=== PATIENT | female | born 1980 | race Two or more races ===

== ENCOUNTER → 2016-09-10 | Outpatient (CLI) | payer MEDICAID, OTHER ==
--- NOTE | 2016-09-10 17:57 | RADRPT ---
PROCEDURE: XR pelvis/left hip. CLINICAL INDICATION: Hip pain TECHNIQUE: AP pelvis/AP and lateral left hip views performed COMPARISON: No prior studies are available for comparison. FINDINGS: There is severe left hip osteoarthrosis. This is associated with joint space narrowing, subchondral sclerosis, lateral displacement of the femoral head , subchondral cyst formation and osteophytosis. The right hip is unremarkable. The SI joints are unremarkable. There is normal mineralization. No fractures or osseous lesions are identified. The soft tissues are unremarkable. IMPRESSION: Severe left hip osteoarthrosis. RPTAT: HGDB .Efrain Raya MD, Date Time Electronically viewed and signed by .Efrain Raya MD, on 09/10/2016 17:57 .B/
== END | disposition home or self-care (01) ==
LOC: HKI 13:49
PROVIDERS: ATTEND Orthopaedic Surgery
DX: M25.552 Pain in left hip (principal); M16.12 Unilateral primary osteoarthritis, left hip
CPT/HCPCS: 73502; Z7500; G0463

== ENCOUNTER → 2016-10-24 | Outpatient (CLI) | payer OTHER | END | disposition home or self-care (01) | LOC: HKI 09:40 | PROVIDERS: ATTEND Orthopaedic Surgery | DX: M25.552 Pain in left hip (principal); M16.12 Unilateral primary osteoarthritis, left hip | CPT/HCPCS: G0463 ==

== ENCOUNTER 2016-10-30 07:00 | Inpatient (IN) | payer OTHER ==
[2016-10-24 11:41] VITALS: BMI 20.2
[~2016-10-30] VITALS: Ht 157.5 cm; Wt 50.7 kg
[2016-11-06] VITALS (24 sets, daily range): BP systolic 79–119; BP diastolic 51–69; PULSE 69–98; RESP 10–28; Ht 157.5 cm; Wt 50.7 kg
[2016-11-06] MEDS ORDERED: traMADOL 50 MG TAB X 1 DOSE PO ONE (06:00)
[2016-11-06] MEDS ORDERED: SOD CHLORIDE 0.9% IV ONE (06:00)
[2016-11-06] MEDS ORDERED: ONDANSETRON 4 MG IV X 1 DOSE IV ONE (06:00)
[2016-11-06] MEDS ORDERED: CELECOXIB 400 MG PO X1 DOSE PO ONE (06:00)
[2016-11-06] MEDS ORDERED: PREGABALIN 300 MG PO X1 PO ONE (06:00)
[2016-11-06] MEDS ORDERED: BUPIVACAINE LIPOSOME/PF 266 MG/20 ML VIAL INFIL ONE (06:00)
[2016-11-06] MEDS ORDERED: PAIN COCKTAIL-CEFUROXIME IRR ONE ×7 (06:00)
[2016-11-06] MEDS ORDERED: oxyCODONE (CR) 10 MG TAB [oxyCONTIN] X1 DOSE PO ONE (06:00)
[2016-11-06] MEDS ORDERED: TRANEXAMIC ACID 500 MG in SOD CHLORIDE 0.9% 100 ML IVPB ONE (06:00)
[2016-11-06] MEDS ORDERED: TRANEXAMIC ACID IV ONE (06:00)
[2016-11-06] MEDS ORDERED: CEFAZOLIN 2GM/50 ML (PMX) 50 ML X1 BEFORE INCISION IVPB ONE (06:00)
[2016-11-06] MEDS ORDERED: NAPR-260 PO (06:36)
[2016-11-06] MEDS ORDERED: BACITRACIN 50000 UNITS INJ ONE (06:55)
[2016-11-06] MEDS ORDERED: SODIUM CL BACTERIOSTATIC 30 ML INJ ONE (06:57)
[2016-11-06] MEDS ORDERED: VANCOMYCIN 1 GM INJ ONE (06:57)
[2016-11-06] MEDS ORDERED: POLYMYXIN B 500000 UNIT INJ ONE (06:57)
[2016-11-06] MEDS ORDERED: ETOMIDATE 20 MG INJ ONE (07:00)
[2016-11-06] MEDS ORDERED: NEOSTIGMINE 3 MG/3 ML SYRINGE ONE (07:11)
[2016-11-06] MEDS ORDERED: ONDANSETRON 4 MG INJ ONE (07:11)
[2016-11-06] MEDS ORDERED: GLYCOPYRROLATE 0.4 MG INJ ONE (07:11)
[2016-11-06] MEDS ORDERED: ROCURONIUM 50 MG INJ ONE (07:11)
[2016-11-06] MEDS ORDERED: PROPOFOL 20 ML ONE (07:11)
[2016-11-06] MEDS ORDERED: CEFAZOLIN 1 GM INJ ONE (07:11)
[2016-11-06] MEDS ORDERED: MIDAZOLAM 1 MG/ML 2 ML INJ ONE (07:11)
[2016-11-06] MEDS ORDERED: FENTAnyl 50 MCG/ML VIAL ONE (07:11)
[2016-11-06] MEDS ORDERED: DEXAMETHASONE 4 MG/ML 1 ML INJ ONE (07:12)
--- NOTE | 2016-11-06 07:14 | HPN ---
Date/Time of Note Date/Time of Note DATE: 11/06/16 TIME: 07:13 Interval H&P Admission Note Pt. seen H&P reviewed: No system changes No changes from H&P on 10/31/16 by NASREEN Mckeon MD Nov 06, 2016 07:14
[2016-11-06] MEDS: LACTATED RINGER'S 1,000 ML IV SCH ×5 (07:30→20:19)
[2016-11-06] MEDS ORDERED: LABETALOL HCL 20MG INJ IV PRN (09:00)
[2016-11-06] MEDS ORDERED: EPHEDrine SULFATE 50 MG/5 ML SYG IV PRN (09:00)
[2016-11-06] MEDS ORDERED: IPRATROPIUM (NEB) 0.5 MG/2.5 ML AMP HHN PRN (09:00)
[2016-11-06] MEDS ORDERED: MEPERIDINE 25 MG INJ IV PRN (09:00)
[2016-11-06] MEDS ORDERED: TRIMETHOBENZAMIDE 100 MG/ML VIAL IM PRN (09:00)
[2016-11-06] MEDS ORDERED: HYDROmorphONE (0.2 MG/ML) 10ML SYG IV PRN ×3 (09:00)
[2016-11-06] MEDS ORDERED: ALBUTEROL 0.083% (NEB) 2.5 MG/3 ML AMP HHN PRN (09:00)
[2016-11-06] MEDS ORDERED: OXYCODONE/ACETAMINOPHEN (5/325) TAB PO PRN ×2 (09:00)
[2016-11-06] MEDS ORDERED: MIDAZOLAM 1 MG/ML 2 ML INJ IV PRN (09:00)
[2016-11-06] MEDS ORDERED: hydrALAzine 20 MG INJ IV PRN (09:00)
[2016-11-06] MEDS ORDERED: DIPHENHYDRAMINE 50 MG INJ IV PRN (09:00)
[2016-11-06] MEDS ORDERED: ONDANSETRON 4 MG INJ IV PRN ×2 (09:00→10:30)
[2016-11-06] MEDS ORDERED: FENTAnyl 50 MCG/ML VIAL IV PRN ×2 (09:00)
[2016-11-06] MEDS ORDERED: SUGAMMADEX SODIUM 200 MG/2 ML VIAL IV ONE (09:44)
--- NOTE | 2016-11-06 10:09 | OPR ---
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 ANESTHESIOLOGIST: Jean Serrato M.D. ESTIMATED BLOOD LOSS: 500 cc INTRAVENOUS FLUIDS: 3500 cc of crystalloid SPECIMENS: Femoral head. DRAINS: Hemovac 1 COMPLICATIONS: None. DISPOSITION: The patient tolerated the procedure well and was taken to the recovery room in stable condition. 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 Despite nonsurgical means of treatment including activity modifications and anti-inflammatory medications she has had worsening pain I felt the patient would benefit from a total hip arthroplasty through an anterior approach. The risks, benefits, and alternatives of the procedure were explained in detail to the patient. I explained the risks of the surgery to include, but not be limited to: bleeding and possible need for blood transfusion; infection; pain; stiffness; neurovascular injury with possible numbness, weakness, and/or paralysis anywhere from the hip down to the toes; fracture; instability; dislocation; leg length inequality; wear and/or loosening of the prosthesis and possible need for future revision; blood clots; pulmonary embolism; and anesthetic complications such as heart attack, stroke, GI bleed, pneumonia, and/ or . Ample time was allowed for the patient to ask questions, all of which were addressed and answered. The patient understood the risks involved and wished to proceed. Informed consent was signed prior to the procedure. PROCEDURE: The patient's left hip was initialed with a marking pen in the preoperative area to identify the correct operative site. The patient was brought to the operating room and transferred from the [facility] to the [facility] where a spinal anesthetic was administered. The patient was then anesthetized and intubated. A Forman catheter was placed. Both feet were placed into well padded boots which were then placed into the leg holders of the traction booms. A timeout was performed to confirm that the left side was the correct operative site. The patient was given 2 g of intravenous Ancef within one hour prior to the procedure. The operative hip was prepped and draped in the usual sterile fashion. A 10 cm oblique incision was made over the anterior aspect of the hip and carried down through subcutaneous tissue and fat with sharp dissection. The tensor fascia fatmata was incised along the length of the wound. The tensor fascia muscle was retracted laterally and the sartorius medially. The anterior circumflex vessels were identified and tied off with 2-0 silk suture and coagulated with the [employer] customer program manager. The rectus femoris was elevated off the anterior capsule and an anterior capsulectomy performed. A femoral neck osteotomy was made and the head removed from the acetabulum. The acetabulum was denuded of cartilage circumferentially, as was the femoral head. Retractors were placed around the acetabulum. The remnants of the labrum and ligamentum teres were excised. I reamed the acetabulum to the medial wall and then went into an anatomic position and increased the reamer size in 2 mm increments until I got a good bite and was down to bleeding subchondral bone. The Friendship cup was opened and impacted into the acetabulum and sat flush circumferentially, getting a good bite. C-arm imaging showed it had about 40 to 45 degrees of abduction and 20 degrees of anteversion. The real liner was opened and impacted into the acetabulum and sat flush circumferentially. Attention was turned towards the femur. The operative leg was carefully lowered to the floor with the leg adducted. The foot was then externally rotated to approximately 110 degrees. A posteromedial release was performed to optimize exposure. The femoral hook was placed underneath the proximal femur and the hydraulic lift was then used to elevate the femur up out of the wound. The cookie cutter osteotome was used to remove the remaining overhanging greater trochanter. The femur was then broached, going up in one size increments until it sat flush with the neck cut and a stable fit was achieved. The trial neck and head were assembled and reduced into the acetabulum. Fluoroscopic imaging showed the components to be in good position and the leg lengths and offsets to be equal. At this point, the trial was dislocated and the trial broach removed. The canal was irrigated and dried. The real stem was opened and impacted into the femur. The trunnion was irrigated and dried, and the real femoral head was impacted onto the trunnion, and reduced into the acetabulum. The soft tissues were infiltrated with a mixture of 150 mg of 0.5% Bupivacaine, 8 mg of Duramorph, 300 mcg of epinephrine, 30 mg of Toradol, 100 mcg of clonidine, 750 mg of cefuroxime and 86 mL of normal saline, followed by an injection of 266 mg of liposomal Bupivacaine. At this point the hip was irrigated with a mixture of betadine/saline and then antibiotic saline with pulsatile lavage. A Hemovac drain was placed in the deep portion of the wound and brought out the anterolateral thigh. There was good hemostasis. The tensor fascia fatmata was repaired with a running #1 Vicryl. The deep fat layer was irrigated and closed with 2-0 Stratafix and the subcutaneous layer closed with 3 -0 Vicryl and the skin was closed with soila and then sealed with Dermabond. The drain was secured with 3-0 nylon. The sponge and needle counts were correct at the end of the case. The wound was covered with an occlusive dressing. The patient was awakened, extubated, and taken to the recovery room in stable condition. NASREEN CAMARA MD Nov 06, 2016 10:09
[2016-11-06] MEDS: CEFAZOLIN 2 GM/50 ML (PMX) 50 ML IVPB SCH ×2 (10:20→18:46)
[2016-11-06 10:28] LABS: HEMATOCRIT 29.9 % (37.0-47.0); HEMOGLOBIN 9.9 g/dl (12.0-16.0)
[2016-11-06] MEDS ORDERED: ASPIRIN (EC) 325 MG TAB PO ONE (10:30)
[2016-11-06] MEDS ORDERED: MAGNESIUM HYDROXIDE 30ML CUP PO PRN (10:30)
[2016-11-06] MEDS ORDERED: HYDROCODONE/APAP (5/325) TAB PO PRN (10:30)
[2016-11-06] MEDS ORDERED: NACL 0.9% 3 ML SYG IV SCH (10:30)
[2016-11-06] MEDS ORDERED: NA PHOSPHATE/BIPHOS 133 ML ENEMA PR PRN (10:30)
[2016-11-06] MEDS ORDERED: BISACODYL 10 MG SUPP PR PRN (10:30)
[2016-11-06] MEDS ORDERED: DIPHENHYDRAMINE 25 MG CAP PO PRN (10:30)
[2016-11-06 10:39] LABS: CALCIUM 8.3 mg/dl (8.4-10.2); CREATININE 0.59 mg/dl (0.44-1.00); POTASSIUM 3.4 mmol/L (3.5-5.1)
--- NOTE | 2016-11-06 10:42 | RADRPT ---
PROCEDURE: XR Pelvis. CLINICAL INDICATION: Postop TECHNIQUE: Single AP view of the pelvis. COMPARISON: No prior studies are available for comparison. FINDINGS: The patient is status post total left hip arthroplasty. Hardware appears intact. Alignment is karina sly anatomic. 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 The sacrum itself is suboptimally visualized due to overlying bowel gas. Postoperative changes including subcutaneous gas, skin soila, and subcutaneous drain are present. . IMPRESSION: 1. Total left hip arthroplasty in anatomic alignment. RPTAT: KK .Jcarlos Caldera MD, MD Date Time Electronically viewed and signed by .Jcarlos Caldera MD, MD on 11/06/2016 10:41 .B/
--- NOTE | 2016-11-06 10:42 | PN ---
Date/Time of Note Date/Time of Note DATE: 11/06/16 TIME: 10:41 Assessment/Plan Lines/Catheters IV Catheter Type (from Nrsg): Peripheral IV Assessment/Plan Assessment/Plan Stable in PACU, s/p left anterior KENN -continue Ancef -pain meds as neededf -ASA/SCDs -OOB with PT -check AM labs -monitor drain -d/c quarles in AM XR of the left hip shows good alignment with no fracture or dislocation identified Subjective 24 Hr Interval Summary Stable in PACU. Denies pain. Moving all extremities. Drowsy from anesthesia Exam/Review of Systems Vital Signs Vitals Vital Signs Date Time Temp Pulse Resp B/P Pulse Ox O2 Delivery O2 Flow Rate FiO2 11/06/16 10:29 82 16 111/64 100 Nasal Cannula 2.0 11/06/16 10:15 97.0 Exam Free Text/Dictation Hemovac: minimal Dressing dry Incision clean, dry, and intact without redness or drainage 5/5 Quadriceps, Tibialis Anterior, EHL, Gastroc, Soleus, Peroneals Normal sensation Palpable DT/PT, CR <2 sec No distal edema Results Result Diagram: 11/06/16 1015 GAURAV MCKEE PA-C Nov 06, 2016 10:42
--- NOTE | 2016-11-06 10:43 | RADRPT ---
PROCEDURE: Fluoroscopic guidance with radiographic images during total left hip arthroplasty. CLINICAL INDICATION: Left hip arthroplasty TECHNIQUE: 16 radiographs were obtained during left hip arthroplasty. COMPARISON: Pelvic radiograph 09/10/2016 FINDINGS: 0.5 minutes of fluoroscopy time was utilized during left hip arthroplasty. 16 radiographs were obta ined during the procedure in progress for guidance. Images of sequential resection of the left femo ral head and replacement with a left femoral head prosthesis and the acetabular prosthesis. Procedu re was performed by Dr. Neal. IMPRESSION: 1. Fluoroscopic guidance with x-ray images obtained for guidance during left hip arthroplasty. RPTAT: HJBF .Jcarlos Caldera MD, Date Time Electronically viewed and signed by .Jcarlos Caldera MD, MD on 11/06/2016 10:43 .B/
[2016-11-06] MEDS: FENTAnyl 50 MCG/ML VIAL IV PRN ×2 (10:54→16:19)
[2016-11-06] MEDS: traMADol 50 MG TAB PO SCH ×2 (12:00→18:47)
[2016-11-06] MEDS ORDERED: EXPAREL NOTE (BUPIVICAINE LIPOSOMAL) XX SCH (12:30)
[2016-11-06] MEDS ORDERED: TRANEXAMIC ACID IVPB ONE ×2 (13:30→16:30)
[2016-11-06] MEDS ORDERED: SOD CHLORIDE 0.9% IVPB ONE ×2 (13:30→16:30)
[2016-11-06] MEDS: HYDROmorphONE 1 MG/ML SYG IV PRN ×2 (14:01→17:08)
--- NOTE | 2016-11-06 16:31 | CONS ---
Date/Time of Note Date/Time of Note DATE: 11/06/16 TIME: 16:24 Assessment/Plan Assessment/Plan Chief Complaint/Hosp Course Assessment and plan Left hip developmental dysplasia, status post left anterior total hip arthroplasty Anemia, monitor for now possibly postsurgical Hyponatremia, mild Hypokalemia, mild Left hip pain Nausea vomiting Plan -Continue postoperative care per general surgery, will continue to consult, as needed medications for pain -Replace electrolytes as needed, will repeat labs tomorrow -As needed nausea medications -Continue drain care -PT OT -We will follow-up in the a.m. Problems: Consultation Date/Type/Reason Admit Date/Time Nov 06, 2016 at 05:25 Hx of Present Illness Patient is a 36-year-old female with no significant past medical history except for developmental dysplasia who presents to [facility] status post elective left anterior total hip arthroplasty. Upon initial evaluation patient is vomiting copiously status post extubation from surgery and information is obtained from her sister who is at bedside. Patient does not take any normal medications and her condition was only for a developmental disorder. Patient currently does complain of nausea and vomiting post surgery and incisional site pain. Patient does not state any other acute issues at this time. PMH: Developmental dysplasia of the left hip PSH: Status post left total anterior hip arthroplasty today Social: Unknown Meds: None, except for pain medications for hip Social History Smoking Status: Never smoker Exam/Review of Systems Vital Signs Vitals Vital Signs Date Time Temp Pulse Resp B/P Pulse Ox O2 Delivery O2 Flow Rate FiO2 11/06/16 14:50 97.5 77 19 99/56 96 11/06/16 11:19 Room Air 11/06/16 10:44 2.0 Exam Physical exam General: Patient is laying in bed and answers questions, but Mentation: Patient is alert and oriented 4, Head: Normocephalic atraumatic Eyes: EOMI, pupils reactive to light Neck: Supple, nontender, midline Respiratory: Clear to auscultation bilaterally Cardiovascular: regular rate, no obvious murmurs Gastrointestinal: non-tender to palpation, bowel sounds heard. Neurological: Moves all extremities spontaneously Skin: hemovac drain on left surgical site. CDI Results Result Diagram: 11/06/16 1015 11/06/16 1015 Results 24 hrs Laboratory Tests Test 11/06/16 10:15 Hemoglobin 9.9 L Hematocrit 29.9 L Sodium Level 146 H Potassium Level 3.4 L Chloride Level 105 Carbon Dioxide Level 26 Anion Gap 18 H Blood Urea Nitrogen 6 L Creatinine 0.59 Glucose Level 213 Calcium Level 8.3 L Medications Medications Current Medications Lactated Ringer's (Lr) 1,000 ml @ 100 mls/hr Q10H IV ; Start 11/06/16 at 06:00; Stop 11/06/16 at 20:00 Miscellaneous Information 1 ea 1 ea NOTE XX ; Start 11/06/16 at 12:30; Stop at 20:00 Lactated Ringer's (Lr) 1,000 ml @ 125 mls/hr Q8H IV Last administered on 11:40; Admin Dose 125 MLS/HR; Start 11/06/16 at 10:04 Tramadol HCl (Ultram) 50 mg Q6 PO ; Start 11/06/16 at 12:00; Stop 11/09/16 at 11: 59 Acetaminophen/ Hydrocodone Bitart ([place] (5/325)) 1 tab Q4H PRN PO PAIN LEVEL 1 -3; Start 11/06/16 at 10:30 Acetaminophen/ Hydrocodone Bitart ([place] (5/325)) 2 tab Q4H PRN PO PAIN LEVEL 4 -7; Start 11/06/16 at 10:30 Hydromorphone HCl 1 mg 1 mg Q3H PRN IV PAIN LEVEL 8-10 Last administered on 11/06 14:01; Admin Dose 1 MG; Start 11/06/16 at 10:30 Cefazolin Sodium/ Dextrose (Ancef 2 Gm/50 ml (Pmx)) 50 ml @ 100 mls/hr Q8H IVPB Last administered on 11/06/16 10:20; Admin Dose 100 MLS/HR; Start 11/06/16 at 10:30; Stop 11/07/16 at 02:59 Ondansetron HCl (Zofran Inj) 4 mg Q6H PRN IV NAUSEA AND/OR VOMITING Last administered on 11/06/16 15:01; Admin Dose 4 MG; Start 11/06/16 at 10:30 Bisacodyl (Dulcolax Supp) 10 mg Q12H PRN [place] CONSTIPATION; Start 11/06/16 at 10: 30 Magnesium Hydroxide (Milk Of Mag) 30 ml BID PRN PO CONSTIPATION; Start 11/06/16 at 10:30 Sodium Biphosphate/ Sodium Phosphate (Fleet Enema) 133 ml DAILY PRN [place] CONSTIPATION; Start 11/06/16 at 10:30 Docusate Sodium (Colace) 100 mg BID PO ; Start 11/06/16 at 21:00 Diphenhydramine HCl (Benadryl) 25 mg Q6H PRN PO PRURITUS; Start 11/06/16 at 10: 30 Aspirin (Ecotrin) 325 mg BID PO ; Start 11/07/16 at 09:00 Pantoprazole (Protonix Tab) 40 mg BID@06,18 PO ; Start 11/06/16 at 18:00 SAÚL MAKI Nov 06, 2016 16:31
[2016-11-06] MEDS: PANTOPRAZOLE (EC) 40 MG TAB PO SCH (18:47)
[2016-11-06] MEDS: DOCUSATE SODIUM 100 MG CAP PO SCH (20:20)
[2016-11-07] VITALS (8 sets, daily range): BP systolic 80–109; BP diastolic 42–59; PULSE 65–97; RESP 16–20
[2016-11-07] MEDS: traMADol 50 MG TAB PO SCH ×4 (00:20→18:42)
[2016-11-07] MEDS ORDERED: SOD CHLORIDE 0.9% 1,000 ML IV ONE ×2 (00:45→03:25)
[2016-11-07] MEDS: CEFAZOLIN 2 GM/50 ML (PMX) 50 ML IVPB SCH (02:55)
[2016-11-07] MEDS: PANTOPRAZOLE (EC) 40 MG TAB PO SCH ×2 (05:12→18:42)
[2016-11-07 05:33] LABS: HEMATOCRIT 19.5 % (37.0-47.0)
[2016-11-07 05:41] LABS: HEMOGLOBIN 6.5 g/dl (12.0-16.0)
[2016-11-07 06:09] LABS: CALCIUM 7.4 mg/dl (8.4-10.2); CREATININE 0.58 mg/dl (0.44-1.00); POTASSIUM 3.8 mmol/L (3.5-5.1)
[2016-11-07 06:41] LABS: HEMATOCRIT 19.8 % (37.0-47.0)
[2016-11-07 06:46] LABS: HEMOGLOBIN 6.4 g/dl (12.0-16.0)
--- NOTE | 2016-11-07 08:47 | PN ---
Date/Time of Note Date/Time of Note DATE: 11/07/16 TIME: 08:45 Assessment/Plan Lines/Catheters IV Catheter Type (from Nrsg): Peripheral IV Forman in Place (from Nrsg): Yes Assessment/Plan Assessment/Plan Stable POD #1, s/p left anterior KENN -d/c Ancef -pain meds as needed -ASA/SCDs -transfuse 2 units PRBCs -OOB with PT -check AM labs -drain removed -d/c planning. Will plan to go home upon discharge Subjective 24 Hr Interval Summary No acute overnight events. Patient generally feels fatigued. H&H low and will require transfusion of 2 units PRBCs, ordered by Dr. Braxton. VSS, afebrile. Tentative plan for discharge home when stable. Exam/Review of Systems Vital Signs Vitals Vital Signs Date Time Temp Pulse Resp B/P Pulse Ox O2 Delivery O2 Flow Rate FiO2 11/07/16 08:13 98.3 87 18 83/52 98 11/07/16 05:48 Room Air 11/06/16 10:44 2.0 Intake and Output 11/06/16 11/06/16 11/07/16 14:59 22:59 06:59 Intake Total 7305 ml 932.2 ml 3275 ml Output Total 7905 ml 1900 ml 3000 ml Balance -600 ml -967.8 ml 275 ml Exam Free Text/Dictation Hemovac: 155cc Dressing dry Incision clean, dry, and intact without redness or drainage 5/5 Quadriceps, Tibialis Anterior, EHL, Gastroc, Soleus, Peroneals Normal sensation Palpable DT/PT, CR <2 sec No distal edema Results Result Diagram: 11/07/16 0605 11/07/16 0439 GAURVA MCKEE PA-C Nov 07, 2016 08:47
[2016-11-07] MEDS: ASPIRIN (EC) 325 MG TAB PO SCH ×2 (09:00→20:55)
[2016-11-07] MEDS: DOCUSATE SODIUM 100 MG CAP PO SCH ×2 (09:00→20:55)
[2016-11-07 09:47] LABS: ADD UMIC YES; UR ASCORBIC ACID NEGATIVE (NEGATIVE); UR BILIRUBIN (Dip) NEGATIVE (NEGATIVE); UR BLOOD (Dip) 1+ mg/dL (NEGATIVE); UR CLARITY CLEAR (CLEAR); UR COLOR COLORLESS (YELLOW); UR GLUCOSE (Dip) NEGATIVE (NEGATIVE); UR KETONES (Dip) NEGATIVE (NEGATIVE); UR LEUKOCYTE ESTERASE (Dip) NEGATIVE Leu/ul (NEGATIVE); UR NITRITE (Dip) NEGATIVE (NEGATIVE); UR RBC 0 /HPF (0-5); UR SPECIFIC GRAVITY (Dip) 1.004 (1.003-1.030); UR TOTAL PROTEIN (Dip) NEGATIVE (NEGATIVE); UR UROBILINOGEN (Dip) NEGATIVE (NEGATIVE)
--- NOTE | 2016-11-07 14:04 | PN ---
Date/Time of Note Date/Time of Note DATE: 11/07/16 TIME: 14:03 Assessment/Plan VTE Prophylaxis VTE Prophylaxis Intervention: SCD's Lines/Catheters IV Catheter Type (from Nrsg): Peripheral IV Urinary Cath still in place: Yes Reason Cath still needed: terminal illness/intractable pain Assessment/Plan Chief Complaint/Hosp Course Assessment and plan Left hip developmental dysplasia, status post left anterior total hip arthroplasty Anemia, monitor for now possibly postsurgical Hyponatremia, mild Hypokalemia, mild Left hip pain Nausea vomiting, resolving hypotension, ?chronic Plan -Continue postoperative care per general surgery, will continue to consult, as needed medications for pain -hypotensive, but patient states she has a hx of hypotension, asymptomatic at this time, continue fluids. -Replace electrolytes as needed, will repeat labs tomorrow -As needed nausea medications -hemovac removed -blood given today -PT OT -We will follow-up in the a.m. Problems: Subjective 24 Hr Interval Summary Free Text/Dictation nausea has subsided significantly. mild pain. Exam/Review of Systems Vital Signs Vitals Vital Signs Date Time Temp Pulse Resp B/P Pulse Ox O2 Delivery O2 Flow Rate FiO2 11/07/16 08:13 98.3 87 18 83/52 98 11/07/16 05:48 Room Air 11/06/16 10:44 2.0 Intake and Output 11/06/16 11/06/16 11/07/16 15:00 23:00 07:00 Intake Total 7410.1 ml 827.1 ml 3275 ml Output Total 7905 ml 1900 ml 3000 ml Balance -494.9 ml -1072.9 ml 275 ml Exam Physical exam General: Patient is laying in bed and answers questions Mentation: Patient is alert and oriented 4, Head: Normocephalic atraumatic Eyes: EOMI, pupils reactive to light Neck: Supple, nontender, midline Respiratory: Clear to auscultation bilaterally Cardiovascular: regular rate, no obvious murmurs Gastrointestinal: non-tender to palpation, bowel sounds heard. Neurological: Moves all extremities spontaneously Skin: left surgical site. CDI Results Result Diagram: 11/07/16 0605 11/07/16 0439 Results 24 hrs Laboratory Tests Test 11/07/16 04:30 11/07/16 04:39 11/07/16 06:05 Urine Color COLORLESS Urine Clarity CLEAR Urine pH 6.0 Urine Specific Gardner 1.004 Urine Ketones NEGATIVE Urine Nitrite NEGATIVE Urine Bilirubin NEGATIVE Urine Urobilinogen NEGATIVE Urine Leukocyte Esterase NEGATIVE Urine Microscopic RBC 0 Urine Microscopic WBC 0 Urine Hemoglobin 1+ H Urine Glucose NEGATIVE Urine Total Protein NEGATIVE Hemoglobin 6.5 #*L 6.4 *L Hematocrit 19.5 #L 19.8 L Sodium Level 140 Potassium Level 3.8 Chloride Level 103 Carbon Dioxide Level 27 Anion Gap 14 Blood Urea Nitrogen 8 Creatinine 0.58 Glucose Level 97 # Calcium Level 7.4 L Medications Medications Current Medications Lactated Ringer's (Lr) 1,000 ml @ 125 mls/hr Q8H IV Last administered on 20:19; Admin Dose 125 MLS/HR; Start 11/06/16 at 10:04 Tramadol HCl (Ultram) 50 mg Q6 PO Last administered on 11/07/16 12:57; Admin Dose 50 MG; Start 11/06/16 at 12:00; Stop 11/09/16 at 11:59 Acetaminophen/ Hydrocodone Bitart ([place] (5/325)) 1 tab Q4H PRN PO PAIN LEVEL 1 -3; Start 11/06/16 at 10:30 Acetaminophen/ Hydrocodone Bitart ([place] (5/325)) 2 tab Q4H PRN PO PAIN LEVEL 4 -7; Start 11/06/16 at 10:30 Hydromorphone HCl (Dilaudid) 1 mg Q3H PRN IV PAIN LEVEL 8-10 Last administered on 11/06/16 17:08; Admin Dose 1 MG; Start 11/06/16 at 10:30 Ondansetron HCl (Zofran Inj) 4 mg Q6H PRN IV NAUSEA AND/OR VOMITING Last administered on 11/06/16 15:01; Admin Dose 4 MG; Start 11/06/16 at 10:30 Bisacodyl (Dulcolax Supp) 10 mg Q12H PRN [place] CONSTIPATION; Start 11/06/16 at 10: 30 Magnesium Hydroxide (Milk Of Mag) 30 ml BID PRN PO CONSTIPATION; Start 11/06/16 at 10:30 Sodium Biphosphate/ Sodium Phosphate (Fleet Enema) 133 ml DAILY PRN [place] CONSTIPATION; Start 11/06/16 at 10:30 Docusate Sodium (Colace) 100 mg BID PO Last administered on 11/07/16 09:00; Admin Dose 100 MG; Start 11/06/16 at 21:00 Diphenhydramine HCl (Benadryl) 25 mg Q6H PRN PO PRURITUS; Start 11/06/16 at 10: 30 Aspirin (Ecotrin) 325 mg BID PO Last administered on 11/07/16 09:00; Admin Dose 325 MG; Start 11/07/16 at 09:00 Pantoprazole (Protonix Tab) 40 mg BID@06,18 PO Last administered on 11/07/16 05 :12; Admin Dose 40 MG; Start 11/06/16 at 18:00 SAÚL MAKI Nov 07, 2016 14:04
[2016-11-07] MEDS: HYDROCODONE/APAP (5/325) TAB PO PRN (14:33)
[2016-11-07] MEDS: LACTATED RINGER'S 1,000 ML IV SCH (18:43)
[2016-11-08] MEDS: traMADol 50 MG TAB PO SCH ×5 (00:01→23:52)
[2016-11-08] MEDS: LACTATED RINGER'S 1,000 ML IV SCH ×3 (02:04→18:04)
[2016-11-08 02:28] VITALS: BP 91/53; RESP 18
[2016-11-08] MEDS: HYDROCODONE/APAP (5/325) TAB PO PRN ×2 (02:31→09:24)
[2016-11-08 05:37] LABS: HEMATOCRIT 26.9 % (37.0-47.0); HEMOGLOBIN 9.3 g/dl (12.0-16.0)
[2016-11-08 05:59] LABS: CALCIUM 7.7 mg/dl (8.4-10.2); CREATININE 0.59 mg/dl (0.44-1.00); POTASSIUM 3.3 mmol/L (3.5-5.1)
[2016-11-08] MEDS: PANTOPRAZOLE (EC) 40 MG TAB PO SCH ×2 (06:26→18:44)
--- NOTE | 2016-11-08 06:47 | PDOCDIS ---
Discharge Instructions DIAGNOSIS Discharge Diagnosis s/p left anterior KENN CONDITION Patient Condition: Good HOME CARE INSTRUCTIONS: Diet Instructions: Regular ACTIVITY: Activity Restrictions: Slowly Increase Activity Rest between Activity Avoid heavy lifting Do not operate Machinery Do not operate Power Tool Avoid Heavy Housework Keep Limb Elevated Weight Bearing FOLLOW UP/APPOINTMENTS Follow-up Plan follow up in the office on 11/16/16 OTHER ORDERS: Other Orders: S/P Anterior KENN Physical Therapy: Three times per week at home x 2 weeks Daily in Rehab/SNF WB STATUS: WBAT Strengthening exercises for both upper and un-operated lower extremities. 1. Gait training with front wheeled walker 2. Wide base gait, no pivot turns. 3. Abductor strengthening. 4. Quadriceps and hamstring strengthening. 5. May switch to cane in contra lateral hand 6 weeks after surgery. 6. Physical Therapy can open case if nursing is not available. 7. Ice Packs while at rest to surgical wound for 20 minutes, 3 times/day. 8. Patient requires mobile SCDs to reduce risk of developing DVT following KENN. Patient will use the mobile SCDs for 30 days postoperatively. Hip Precautions: No posterior hip precautions. Bathing assistance by home health aide twice weekly if Medicare patient. Occupational Therapy: Evaluation for assistive devices and ADL training. Wound Care: Keep incision dry & covered with Tegaderm until first visit with Dr. Braxton Anticoagulation Orders: Enteric Coated Aspirin 325 mg po bid x 6 weeks from date of surgery Follow-up:Call for an appointment with Dr. Braxton in 1 week after discharged from hospital at DME Orders: JENNIFER, 3-in-1 Commode, Mobile SCDs GAURAV MCKEE PA-C Nov 08, 2016 06:47
[2016-11-08] MEDS ORDERED: ASPI325T32 PO (06:50)
[2016-11-08] MEDS ORDERED: TRAM50TA2 PO (06:50)
[2016-11-08] MEDS ORDERED: HYDR-3498 PO (06:50)
[2016-11-08] MEDS ORDERED: PANT40TA4 PO (06:50)
--- NOTE | 2016-11-08 07:46 | PN ---
Date/Time of Note Date/Time of Note DATE: 11/08/16 TIME: 07:44 Assessment/Plan Lines/Catheters IV Catheter Type (from Nrsg): Peripheral IV Forman in Place (from Nrsg): Yes Assessment/Plan Assessment/Plan POD #2, s/p left anterior KENN -pain meds as needed -ASA/SCDs -OOB with PT -dressing changed -check AM labs -plan to d/c home tomorrow Subjective 24 Hr Interval Summary No acute overnight events. H&H improved after receiving blood yesterday. VSS, afebrile. Plan for discharge home tomorrow. Exam/Review of Systems Vital Signs Vitals Vital Signs Date Time Temp Pulse Resp B/P Pulse Ox O2 Delivery O2 Flow Rate FiO2 11/08/16 02:28 98.2 70 18 91/53 97 11/07/16 18:00 Room Air 11/06/16 10:44 2.0 Intake and Output 11/07/16 11/07/16 11/08/16 15:00 23:00 07:00 Intake Total 2025 ml 1725 ml Output Total 900 ml 2500 ml Balance 1125 ml -775 ml Exam Free Text/Dictation Dressing dry Incision clean, dry, and intact without redness or drainage 5/5 Quadriceps, Tibialis Anterior, EHL, Gastroc, Soleus, Peroneals Normal sensation Palpable DT/PT, CR <2 sec No distal edema Results Result Diagram: 11/08/168 11/08/168 GAURAV MCKEE PA-C Nov 08, 2016 07:46
[2016-11-08 08:29] VITALS: BP 100/61; RESP 16
[2016-11-08] MEDS ORDERED: POTASSIUM CHLORIDE 20 MEQ POWDER FOR ORAL SOLN PO ONE (09:30)
[2016-11-08] MEDS: DOCUSATE SODIUM 100 MG CAP PO SCH ×2 (10:07→20:39)
[2016-11-08] MEDS: ASPIRIN (EC) 325 MG TAB PO SCH ×2 (10:07→20:39)
--- NOTE | 2016-11-08 13:41 | PN ---
Date/Time of Note Date/Time of Note DATE: 11/08/16 TIME: 13:40 Assessment/Plan VTE Prophylaxis VTE Prophylaxis Intervention: ambulation Lines/Catheters IV Catheter Type (from Nrsg): Saline Lock Urinary Cath still in place: Yes Reason Cath still needed: terminal illness/intractable pain Assessment/Plan Chief Complaint/Hosp Course Assessment and plan Left hip developmental dysplasia, status post left anterior total hip arthroplasty Anemia, monitor for now possibly postsurgical Hyponatremia, mild Hypokalemia, mild Left hip pain Nausea vomiting, resolving hypotension, ?chronic Plan -Continue postoperative care per general surgery, will continue to consult, as needed medications for pain -hypotensive, but patient states she has a hx of hypotension, asymptomatic at this time, continue fluids as needed. -Replace electrolytes as needed, will repeat labs tomorrow -As needed nausea medications -hemovac removed -blood given today -PT OT -We will follow-up in the a.m. Problems: Subjective 24 Hr Interval Summary Free Text/Dictation minimal nausea mild surgical site pain Exam/Review of Systems Vital Signs Vitals Vital Signs Date Time Temp Pulse Resp B/P Pulse Ox O2 Delivery O2 Flow Rate FiO2 11/08/16 08:29 98.5 88 16 100/61 97 11/07/16 18:00 Room Air 11/06/16 10:44 2.0 Intake and Output 11/07/16 11/07/16 11/08/16 15:00 23:00 07:00 Intake Total 2025 ml 1725 ml Output Total 900 ml 2500 ml Balance 1125 ml -775 ml Exam Physical exam General: Patient is laying in bed and answers questions Mentation: Patient is alert and oriented 4, Head: Normocephalic atraumatic Eyes: EOMI, pupils reactive to light Neck: Supple, nontender, midline Respiratory: Clear to auscultation bilaterally Cardiovascular: regular rate, no obvious murmurs Gastrointestinal: non-tender to palpation, bowel sounds heard. Neurological: Moves all extremities spontaneously Skin: left surgical site. CDI Results Result Diagram: 11/08/168 11/08/168 Results 24 hrs Laboratory Tests Test 11/08/16 04:28 11/08/16 07:13 Hemoglobin 9.3 #L Hematocrit 26.9 #L Sodium Level 141 Potassium Level 3.3 L Chloride Level 101 Carbon Dioxide Level 30 Anion Gap 13 Blood Urea Nitrogen 6 L Creatinine 0.59 Glucose Level 82 Calcium Level 7.7 L Lab Scanned Report BLOOD TRANSFUSION Medications Medications Current Medications Lactated Ringer's (Lr) 1,000 ml @ 125 mls/hr Q8H IV Last administered on 04:34; Admin Dose 125 MLS/HR; Start 11/06/16 at 10:04 Tramadol HCl (Ultram) 50 mg Q6 PO Last administered on 11/08/16 12:56; Admin Dose 50 MG; Start 11/06/16 at 12:00; Stop 11/09/16 at 11:59 Acetaminophen/ Hydrocodone Bitart ([place] (5/325)) 1 tab Q4H PRN PO PAIN LEVEL 1 -3 Last administered on 11/08/16 09:24; Admin Dose 1 TAB; Start 11/06/16 at 10:30 Acetaminophen/ Hydrocodone Bitart ([place] (5/325)) 2 tab Q4H PRN PO PAIN LEVEL 4 -7; Start 11/06/16 at 10:30 Hydromorphone HCl (Dilaudid) 1 mg Q3H PRN IV PAIN LEVEL 8-10 Last administered on 11/06/16 17:08; Admin Dose 1 MG; Start 11/06/16 at 10:30 Ondansetron HCl (Zofran Inj) 4 mg Q6H PRN IV NAUSEA AND/OR VOMITING Last administered on 11/06/16 15:01; Admin Dose 4 MG; Start 11/06/16 at 10:30 Bisacodyl (Dulcolax Supp) 10 mg Q12H PRN [place] CONSTIPATION; Start 11/06/16 at 10: 30 Magnesium Hydroxide (Milk Of Mag) 30 ml BID PRN PO CONSTIPATION; Start 11/06/16 at 10:30 Sodium Biphosphate/ Sodium Phosphate (Fleet Enema) 133 ml DAILY PRN [place] CONSTIPATION; Start 11/06/16 at 10:30 Docusate Sodium (Colace) 100 mg BID PO Last administered on 11/08/16 10:07; Admin Dose 100 MG; Start 11/06/16 at 21:00 Diphenhydramine HCl (Benadryl) 25 mg Q6H PRN PO PRURITUS; Start 11/06/16 at 10: 30 Aspirin (Ecotrin) 325 mg BID PO Last administered on 11/08/16 10:07; Admin Dose 325 MG; Start 11/07/16 at 09:00 Pantoprazole (Protonix Tab) 40 mg BID@,18 PO Last administered on 11/08/16 06 :26; Admin Dose 40 MG; Start 11/06/16 at 18:00 SAÚL MAKI Nov 08, 2016 13:41
[2016-11-08 15:09] VITALS: BP 99/57; RESP 16
[2016-11-08 20:48] VITALS: BP 101/61; RESP 18
[2016-11-09] MEDS: LACTATED RINGER'S 1,000 ML IV SCH ×2 (01:54→09:01)
[2016-11-09 05:13] LABS: HEMATOCRIT 29.7 % (37.0-47.0); HEMOGLOBIN 9.8 g/dl (12.0-16.0)
[2016-11-09 05:27] LABS: CALCIUM 8.2 mg/dl (8.4-10.2); CREATININE 0.57 mg/dl (0.44-1.00); POTASSIUM 3.4 mmol/L (3.5-5.1)
[2016-11-09] MEDS: PANTOPRAZOLE (EC) 40 MG TAB PO SCH (06:09)
[2016-11-09] MEDS: traMADol 50 MG TAB PO SCH (06:09)
[2016-11-09 08:09] VITALS: BP 90/56; RESP 18
--- NOTE | 2016-11-09 08:45 | PN ---
Date/Time of Note Date/Time of Note DATE: 11/09/16 TIME: 08:44 Assessment/Plan Lines/Catheters IV Catheter Type (from Nrsg): Saline Lock Forman in Place (from Nrsg): Yes Assessment/Plan Assessment/Plan POD #3, s/p left anterior KENN -pain meds as needed -ASA/SCDs -OOB with PT -dressing changed -d/c home today -follow up in the office in 1 week Subjective 24 Hr Interval Summary No acute overnight events. Denies significant pain. Walked 400 feet with PT yesterday. VSS, afebrile. Stable for discharge home today. Exam/Review of Systems Vital Signs Vitals Vital Signs Date Time Temp Pulse Resp B/P Pulse Ox O2 Delivery O2 Flow Rate FiO2 11/09/16 08:09 98.0 80 18 90/56 85 11/07/16 18:00 Room Air 11/06/16 10:44 2.0 Intake and Output 11/08/16 11/08/16 11/09/16 15:00 23:00 07:00 Intake Total 700 ml 500 ml Balance 700 ml 500 ml Exam Free Text/Dictation Dressing dry Incision clean, dry, and intact without redness or drainage 5/5 Quadriceps, Tibialis Anterior, EHL, Gastroc, Soleus, Peroneals Normal sensation Palpable DT/PT, CR <2 sec No distal edema Results Result Diagram: 11/09/16 0427 11/09/16 0428 GAURAV MCKEE PA-C Nov 09, 2016 08:45
[2016-11-09] MEDS: DOCUSATE SODIUM 100 MG CAP PO SCH (09:00)
[2016-11-09] MEDS: ASPIRIN (EC) 325 MG TAB PO SCH (09:00)
[2016-11-09] MEDS ORDERED: POTASSIUM CHLORIDE 20 MEQ POWDER FOR ORAL SOLN PO ONE (10:30)
--- NOTE | 2016-11-09 11:13 | DS ---
Date/Time of Note Date/Time of Note DATE: 11/09/16 TIME: 11:10 Discharge Summary Admission/Discharge Info Admit Date/Time Nov 06, 2016 at 05:25 Discharge Date/Time November 09, 2016 Discharge Diagnosis s/p left anterior EKNN Patient Condition: Good Procedures Left anterior total hip arthroplasty Hospital Course This is a 36-year-old female who came to our clinic initially complaining of left hip pain. 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 On 11/06/2016, the patient was admitted and taken to the operating room where she underwent a left anterior total hip arthroplasty. There were no intraoperative complications. The patient tolerated procedure well. She was taken to recovery room in stable condition. Pain was well-controlled oral pain medication. She was started on aspirin and SCDs for DVT prophylaxis. She did develop postop anemia requiring a transfusion of 2 units of packed red cells. After her blood transfusion, her H& H remained stable and she remained neurovascularly intact throughout her hospital stay. She began physical therapy on postoperative day 2, and was deemed stable for discharge home on postoperative day 3. Prior to discharge, the incision was inspected and noted to be clean, dry, and intact. Dressing changes were done prior to patient going home. DISCHARGE INSTRUCTIONS: The patient will be discharged home in stable condition. She is to resume her normal diet. She is weightbearing as tolerated on left lower extremity. She will begin physical therapy with home health. She will be discharged home with a medication noted, and is to resume all of her normal home medication. Patient is to call the office or go to emergency room for any concerns including increased redness, swelling, drainage , fever, or any concerns regarding the operation or site of incision. Home Meds Active Scripts Tramadol HCl (Tramadol HCl) 50 Mg Tablet, 50 MG PO Q6 for 30 Days, #60 TAB Prov:GAURAV MCKEE PA-C 11/08/16 Hydrocodone Bit-Acetaminophen (Hydrocodone Bit-APAP) 5-325MG Tablet, 1 TAB PO Q4H Y for PAIN LEVEL 1-3 for 30 Days, #60 TAB Prov:GAURAV MCKEE PA-C 11/08/16 Pantoprazole* (Pantoprazole*) 40 Mg Tablet.dr 40 MG PO BID@06,18 for 40 Days, # 40 Prov:GAURAV MCKEE PA-C 11/08/16 Aspirin (Aspir-Michelle) 325 Mg Tablet.dr, 325 MG PO BID for 40 Days, #80 Prov:GAURAV MCKEE PA-C 11/08/16 Discontinued Reported Medications Naproxen* (Naprosyn*) 500 Mg Tablet, 500 MG PO BID, TAB 11/06/16 Follow-up Plan Follow-up in the office on 11/16/2016 Primary Care Provider Pam Nesbitt MD Pending Labs Laboratory Tests Test 11/09/16 04:27 11/09/16 04:28 Hemoglobin 9.8g/dl (12.0-16.0) Hematocrit 29.7% (37.0-47.0) Sodium Level 138mmol/L (135-144) Potassium Level 3.4mmol/L (3.5-5.1) Chloride Level 97mmol/L (97-110) Carbon Dioxide Level 31mmol/L (21-31) Anion Gap 13 (8-16) Blood Urea Nitrogen 5mg/dl (7-20) Creatinine 0.57mg/dl (0.44-1.00) Glucose Level 91mg/dl (70-220) Calcium Level 8.2mg/dl (8.4-10.2) GAURAV MCKEE PA-C Nov 09, 2016 11:13
--- NOTE | 2016-11-09 14:07 | PN ---
Date/Time of Note Date/Time of Note DATE: 11/09/16 TIME: 14:06 Assessment/Plan VTE Prophylaxis VTE Prophylaxis Intervention: ambulation Lines/Catheters IV Catheter Type (from Nrs): Saline Lock Urinary Cath still in place: No Assessment/Plan Chief Complaint/Hosp Course Assessment and plan Left hip developmental dysplasia, status post left anterior total hip arthroplasty Anemia, monitor for now possibly postsurgical Hyponatremia, mild Hypokalemia, mild Left hip pain Nausea vomiting, resolving hypotension, ?chronic Plan -Continue postoperative care per general surgery, will continue to consult, as needed medications for pain -hypotensive, but patient states she has a hx of hypotension, asymptomatic at this time, continue fluids as needed. -Replace electrolytes as needed, will repeat labs tomorrow -As needed nausea medications -hemovac removed -blood given today -PT OT To DC today. Problems: Subjective 24 Hr Interval Summary Free Text/Dictation feels well Exam/Review of Systems Vital Signs Vitals Vital Signs Date Time Temp Pulse Resp B/P Pulse Ox O2 Delivery O2 Flow Rate FiO2 11/09/16 08:09 98.0 80 18 90/56 85 11/07/16 18:00 Room Air 11/06/16 10:44 2.0 Intake and Output 11/08/16 11/08/16 11/09/16 15:00 23:00 07:00 Intake Total 700 ml 500 ml Balance 700 ml 500 ml Exam Physical exam General: Patient is laying in bed and answers questions Mentation: Patient is alert and oriented 4, Head: Normocephalic atraumatic Eyes: EOMI, pupils reactive to light Neck: Supple, nontender, midline Respiratory: Clear to auscultation bilaterally Cardiovascular: regular rate, no obvious murmurs Gastrointestinal: non-tender to palpation, bowel sounds heard. Neurological: Moves all extremities spontaneously Skin: left surgical site. CDI Results Result Diagram: 11/09/16 0427 11/09/16 0428 Results 24 hrs Laboratory Tests Test 11/09/16 04:27 11/09/16 04:28 Hemoglobin 9.8 L Hematocrit 29.7 L Sodium Level 138 Potassium Level 3.4 L Chloride Level 97 Carbon Dioxide Level 31 Anion Gap 13 Blood Urea Nitrogen 5 L Creatinine 0.57 Glucose Level 91 Calcium Level 8.2 L SAÚL MAKI Nov 09, 2016 14:07
== END 2016-11-09 11:08 | disposition home health service (06) | DRG 470 ==
LOC: REC 11-06 05:25 → MS1 11-06 11:13
PROVIDERS: ADMIT Orthopaedic Surgery; ATTEND Orthopaedic Surgery
PROC: 0SRB04A Replacement of Left Hip Joint with Ceramic on Polyethylene Synthetic Substitute, Uncemented, Open Approach (ICD-10-PCS; principal; 2016-11-06 07:00)
PROC: 30233N1 Transfusion of Nonautologous Red Blood Cells into Peripheral Vein, Percutaneous Approach (ICD-10-PCS; 2016-11-07)
DX: M16.12 Unilateral primary osteoarthritis, left hip (principal); I95.89 Other hypotension; E87.1 Hypo-osmolality and hyponatremia; Q74.2 Other congenital malformations of lower limb(s), including pelvic girdle; E87.6 Hypokalemia; R11.2 Nausea with vomiting, unspecified; G89.18 Other acute postprocedural pain; D64.9 Anemia, unspecified
CPT/HCPCS: 36430; 72170; 73530; 80048; 81001; 85014; 85018; 86850; 86900; 86901; 86920; 87081; 87086; 88304; 88311; 97003; 97110; 97116; 97161; 97165; 97535; C1776; C9290; J0171; J0690; J0697; J0735; J1100; J1170; J1885; J2250; J2274; J2405; J2710; J3010; J3370; J7030; J7120; P9016

== ENCOUNTER → 2016-11-16 | Outpatient (CLI) | payer OTHER ==
[~2016-11-16] MED LIST: ASPI325T32 PO; HYDR-3498 PO; PANT40TA4 PO; TRAM50TA2 PO
--- NOTE | 2016-11-16 10:48 | PN ---
Date/Time of Note Date/Time of Note DATE: 11/16/16 TIME: 10:45 Assessment/Plan VTE Prophylaxis VTE Prophylaxis Intervention: ambulation, other Assessment/Plan Assessment/Plan ASSESSMENT: 10 days status post left anterior total hip arthroplasty PLAN: The soila removed today, and Steri-Strips were applied. She is to continue physical therapy with home health. Additionally she is to continue aspirin 325 mg twice daily for DVT prophylaxis. She is to begin to transition herself to a cane as tolerated. We will see her back in 4 weeks for repeat evaluation. The patient is to call the office the meantime she has any concerns. Subjective 24 Hr Interval Summary Free Text/Dictation The patient presents today for her first postoperative evaluation on her left hip. She is 10 days status post left anterior total hip arthroplasty. She is doing well overall. She is doing physical therapy with home health. She denies any fevers or chills. She states her pain overall is improving. She is still taking [place] and tramadol for pain. She presents today for her first postoperative evaluation. Exam/Review of Systems Exam On exam today, she is alert and oriented 4, and in no acute distress. She is ambulating with a front wheeled walker. Exam incision demonstrates it to be clean, dry, and intact. Soila are in place. There is no erythema, warmth, pus, or drainage noted. She has no pain with passive range of motion of the left hip joint. Her leg lengths are equal. Compartments are soft. Homans sign is negative. She is neurovascularly intact distally. IMAGING: X-rays of the left hip are obtained today and reviewed by me. They demonstrate good alignment with no fractures or dislocations identified GAURAV MCKEE PA-C Nov 16, 2016 10:48
== END | disposition home or self-care (01) ==
LOC: HKI 10:00
PROVIDERS: ATTEND Orthopaedic Surgery
DX: Z47.1 Aftercare following joint replacement surgery (principal); Z96.642 Presence of left artificial hip joint
CPT/HCPCS: 73502

== ENCOUNTER 2018-09-25 12:14 | Emergency (ER) | payer OTHER ==
[~2018-09-25] VITALS: Ht 157.5 cm; Wt 54.6 kg
[~2018-09-25 12:14] MED LIST changes: -HYDR-3498 PO; +HYDR-3601 PO
[2018-09-25 12:23] VITALS: Ht 157.5 cm; Wt 54.6 kg
[2018-09-25] MEDS ORDERED: KETOROLAC 60 MG INJ IM STA (14:38)
[2018-09-25] MEDS ORDERED: OXYCODONE/ACETAMINOPHEN (5/325) TAB PO ONE (15:00)
--- NOTE | 2018-09-25 15:09 | ERD ---
ER Documentation Chief Complaint Chief Complaint C/O LEFT HIP PAIN S/P BENDED OVER. HX OF HIP REPLACEMENT 2 YEARS AGO HPI 38-year-old female presents with left hip pain for the past day after bending over to pick something up. States she has a history of hip replacement 2 years ago. Pain is made worse with ambulation. Denies any numbness or weakness. States the pain is currently 8 out of 10 and nonradiating. Denies any treatments. ROS All systems reviewed and are negative except as per history of present illness. Medications Home Meds Active Scripts Ibuprofen* (Motrin*) 600 Mg Tab, 600 MG PO Q6H PRN for PAIN AND OR ELEVATED TEMP, #30 TAB Prov:DAWOOD CARRERA 09/25/18 Hydrocodone/Acetaminophen ([place] 5-325 Tablet) 1 Each Tablet, 1 TAB PO Q6H PRN for PAIN, #15 TAB Prov:DAWOOD CARRERA 09/25/18 Tramadol HCl (Tramadol HCl) 50 Mg Tablet, 50 MG PO Q6 for 30 Days, #60 TAB Prov:GAURAV CMKEE PA-C 11/08/16 Hydrocodone Bit-Acetaminophen (Hydrocodone Bit-APAP) 5-325MG Tablet, 1 TAB PO Q4H PRN for PAIN LEVEL 1-3 for 30 Days, #60 TAB Prov:GAURAV MCKEE PA-C 11/08/16 Pantoprazole* (Pantoprazole*) 40 Mg Tablet., 40 MG PO BID@06,18 for 40 Days, #40 Prov:GAURAV MCKEE PA-C 11/08/16 Aspirin (Aspir-Michelle) 325 Mg Tablet., 325 MG PO BID for 40 Days, #80 Prov:GAURAV MCKEE PA-C 11/08/16 Allergies Allergies: Coded Allergies: No Known Allergy (Unverified , 11/06/16) PMhx/Soc History of Surgery: Yes (R LE EXCISION OF MASS, LEFT HIP REPLACEMENT) Anesthesia Reaction: No Hx Neurological Disorder: No Hx Respiratory Disorders: No Hx Cardiac Disorders: No Hx Psychiatric Problems: No Hx Miscellaneous Medical Probl: No Hx Alcohol Use: No Hx Substance Use: No Hx Tobacco Use: No FmHx Family History: No diabetes, No coronary disease, No other Physical Exam Vitals Vital Signs Date Temp Pulse Resp B/P (MAP) Pulse Ox O2 O2 Flow FiO2 Time Delivery Rate 09/25/18 98.5 83 18 113/56 99 12:23 (75) Physical Exam Const: No acute distress Head: Atraumatic Eyes: Normal Conjunctiva ENT: Normal External Ears, Nose and Mouth. Neck: Full range of motion. No meningismus. Resp: Clear to auscultation bilaterally Cardio: Regular rate and rhythm, no murmurs Abd: Soft, non tender, non distended. Normal bowel sounds Skin: No petechiae or rashes Back: No midline or flank tenderness Ext: No cyanosis, or edema Neur: Awake and alert Psych: Normal Mood and Affect Lower Extremity - bilateral: Skin: No laceration Compartments: Soft Motor: Full active range of motion hip/knee/ankle/foot Sensation: Intact to light touch FDWS/MF/LF/P surfaces. Bones: No tenderness to palpation over humerus or pelvis. Joints: No effusion or laxity Pulses/Perfusion: 2+ DP, Capillary refill < 2 seconds Results 24 hrs Laboratory Tests Test 09/25/18 14:54 POC Beta HCG, Qualitative NEGATIVE Current Medications Medications Dose Sig/Shyla Start Time Status Last (Trade) Ordered Route PRN Stop Time Admin Dose Reason Admin Oxycodone/ 1 tab ONCE ONCE 09/25/18 DC 09/25/18 Acetaminophen PO 15:00 15:04 (Percocet 09/25/18 15:01 (5/ 325)) Ketorolac 60 mg ONCE STAT 09/25/18 DC 09/25/18 Tromethamine IM 14:38 15:04 (Toradol) 09/25/18 14:41 Procedures/MDM MDM: X-rays were performed results within normal limits. Patient possibly suffering from hip strain. I have low suspicion for neurovascular compromise, compartment syndrome, fracture, osteomyelitis, septic joint, DVT, or other emergent condition. At this time, patient is stable for discharge and outpati ent management. I have instructed the patient to follow-up with his/her primary care physician in 1-2 days. I have discussed with the patient the possibility of needing to see a specialist for further workup and imaging studies if symptoms persist. I have instructed the patient to promptly return to the ER for any new or worsening symptoms including but not limited to increased pain, fever, nausea, vomiting, weakness or LOC. The patient and/or family expressed understanding of and agreement with this plan. All questions were answered. Home care instructions were provided. [Communication with patient both during the exam and instructions for discharge were performed with using a concession worker . Patient gave verbal confirmation to the practitioner, through the concession worker, that they understood everythign that was being said to them.] DISCLAIMER: Inadvertent spelling and grammatical errors are likely due to EHR/dictation software use and do not reflect on the overall quality of patient care. Also, please note that the electronic time recorded on this note does not necessarily reflect the actual time of the patient encounter. Departure Diagnosis: Primary Impression: Hip pain Additional Impression: Hip injury Condition: Stable DAWOOD CARRERA Sep 25, 2018 15:09
[2018-09-25] MEDS ORDERED: IBUP-1542 PO (16:21)
[2018-09-25] MEDS ORDERED: HYDR-4011 PO (16:21)
[2018-09-25 16:39] VITALS: BP 115/61; PULSE 78; RESP 18
== END 2018-09-25 16:40 | disposition home or self-care (01) ==
LOC: FTE 12:14
DX: S79.912A Unspecified injury of left hip, initial encounter (principal); X58.XXXA Exposure to other specified factors, initial encounter; Y92.9 Unspecified place or not applicable; Z96.642 Presence of left artificial hip joint; Z79.82 Long term (current) use of aspirin
CPT/HCPCS: 73510; 81025; 96372; J1885; Z7502; Z7610